=== PATIENT | female | born 1960 ===

== ENCOUNTER 2024-09-13 05:56 | Day surgery (SDC) | payer BC, SELFPAY ==
--- NOTE | 2024-09-12 11:30 | W.CON.GYNONC ---
Chief Complaint
-
pelvic mass
History of Present Illness
64�year�old��woman�referred�to�me�by�Dr�Ravy�Karen.�This�patient�had�not�had�a�gynecologic�evaluation�since�COVID pandemic.�She�went�in�for�routine�exam�because�starting�in�[place]�she�experienced�some�postmenopausal�bleeding.�Over�the�last
couple�of�years�she�had�noted�some�bloating�of�the�lower�abdomen�and�essentially�attributed�it�to�menopausal�weight�gain.�Pap smear�was�done.�An�ultrasound�of�pelvis�was�ordered�because�of�palpated�mass�during�exam.�And�she�was�referred�to�Dr.�Karen
She�had�a�CT�abdomen�and�pelvis�October�t�[place]�outpatient�imaging[place],�liver�bile�duct�gallbladder
pancreas�spleen�adrenal�glands�kidneys�ureters�and�bladder�are�normal.�There�is�a�large�multi�locular�cystic�mass�measuring�20�x
19�x�9�cm�arising�from�left�adnexa.�Endometrium�is�thickened�with�heterogeneous�enhancement�and�nodularity�measuring�1�cm. Bowel�and�peritoneal�cavity�are�normal�and�there�is�no�retroperitoneal�lymphadenopathy.
Pap�smear�was�negative�for�intraepithelial�lesion.�Dated�Cristel Because�of�thickened�endometrium�and�D&C�and�hysteroscopy�was�performed,�this�shows�mucus�admixed�with�benign�endocervix
lower�uterine�segment�and�atrophic�ectocervical�tissue�and�endocervical�curetting.�Endometrial�curetting�shows�inactive endometrium.�A�polyp�was�shaved�which�shows�polypoid�inactive�endometrium�with�cystically�dilated�glands�and�stromal�changes
compatible�with�endometrial�polyp.�Most�likely�this�was�the�explanation�for�the�thickened�endometrium. hCG�less�than�1,�CA125�is�21,�AFP�is�4.2,�estradiol�is�67.2,�inhibin�B�is�14,�inhibin�a�is�5.3
Allergies No�Known�Drug�Allergies
Medications
biotin�10,000�mcg�capsule 09/11/2024 0 1�p.o.�q.�day
calcium�166.6�mg�vit�D2�4.15�mcg magnesium�83.3 mg�
vit�C�K2�min�tablet 09/11/2024 0 2�in�the�AM�2 in�the�PM
Fish�Oil�900�mg�360�mg�455�mg�1,000�mg�capsule 09/11/2024 0 1�p.o.�q.�day
magnesium�250�mg�tablet 09/11/2024 500mg�2�in the�PM
multivitamin�oral 09/11/2024 0 1�p.o.�q.�day
rosuvastatin�20�mg�tablet 09/11/2024 0 1�p.o.�q.�day
Vitamin�D3�125�mcg�(5,000�unit)�tablet 09/11/2024 0 1�p.o.�q.�day
Zyrtec�10�mg�tablet 09/11/2024 0 1�p.o.�q.�day
Past�Medical�History Hyperlipidemia. Surgical�History Hysteroscopy�&�D&"Social�History Patient�denies�ever�using�tobacco. 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 Patient�has�not�had�any�occupational�exposure. Marital�Status:�Patient�is�
Father�with�prostate�ca�and�Pancreatic�ca Gynecological�History Age�at�Menarche�12�years.�Patient�reports�2�pregnancies.�Her�age�at�first�full�term��was�25�years. No�history�of�hormone�replacement�therapy.
Family�Medical�History Father��Pancreatic�cancer.�Prostate�cancer. Mother��Heart�disease.� Brother��Heart�disease.�Hypertension.�
Medical History
Allergies
Allergies reflect when allergies were last updated in [facility].
No Known Allergies Allergy (Verified 09/11/24 11:17)
Review of Systems
-
History Source: Patient
A 12 point Review of Systems was completed except as noted: Yes
Physical Exam
Physical Exam
Pelvic�Examination: External�normal�labia,�urethra,�anus.� Vagina:�Normal�mucosa.� Cervix:�normal�appearance,�no�discharge.� Uterus:�normal�size.�Deviated�to�the�posterior�cul�de�sac
Adnexa:�There�is�a�cystic�fullness�in�the�lower�abdomen�up�to�the�level�of�umbilicus,�I�am�unable�to�appreciate�right�versus�left ovary. RVE:�no�masses�or�nodularity General:�Well�developed,�well�nourished�patient.�In�no�acute�distress.
Neck:�No�thyromegaly.�No�cervical�lymphadenopathy. Lungs:�Clear�to�auscultation.�Good�air�movement�bilaterally. Cardiac:�Regular�rate.�Regular�rhythm.�No�murmurs�appreciated. Right�Breast:�No�changes.�No�masses�or�dimpling.�No�nipple�discharge.
Left�Breast:�No�changes.�No�masses�or�dimpling.�No�nipple�discharge. Abdomen:�Abdomen�is�soft.�Non�tender�to�palpation.�Non�distended.Mass�palpated:�lower�abdomen. Extremities:�No�edema. Hematologic/Lymphatic:�No�palpable�lymphadenopathy.
Musculoskeletal:�Normal�range�of�motion.�Strength�and�Tone�are�normal. Skin:Non�jaundiced.�No�petechia.�No�purpura. Neurologic:�Speech�is�fluent.�Normal�gait�and�station.�Cranial�nerves�intact.
Impression / Plan
-
This�patient�has�left�lower�quadrant�mass�which�is�approximately�19�cm,�my�clinical�impression�is�that�this�is�probably�a�mucinous
neoplasm�benign�versus�low�malignant�potential�less�likely�invasive�cancer.�Recommendation�for�treatment�is�surgery.�Surgery
should�include�removal�of�uterus�cervix�bilateral�tubes�and�ovaries,�at�the�time�of�surgery�frozen�section�will�be�obtained.�If�the�mass
is�malignant�additional�investigation�needs�to�be�performed�to�include�but�not�limited�to�pelvic�and�aortic�lymph�node�dissection,
peritoneal�biopsies�omentectomy�possibly�appendectomy.�The�surgery�can�be�done�open�versus�robotic.�I�would�recommend�that
we�start�as�a�robotic�procedure�and�attempt�completing�the�procedure�if�at�all�possible.�The�cyst�can�be�placed�within�a�bag�for retrieval�either�through�a�mini�laparotomy�or�through�the�vagina.�
Risks�of�surgery�including�infection�bleeding�injury�to�adjacent�organs,�DVT�pulmonary�embolism�and�cardiovascular�complications were�discussed�and�reviewed.�
The�patient�was�given�options�about�dates�of�procedure�and�we�are�agreeable�to�proceed�with�surgery�on�November�29�2024. Surgery�[facility]. Informed�consent�was�signed.�
[2024-09-13] VITALS (11 sets, daily range): BP systolic 105–129; BP diastolic 38–65; BMI 24.4
[2024-09-13] MEDS: TYLENOL 1000 MG PO (08:45)
[2024-09-13] MEDS: NEURONTIN 300 MG PO (08:45)
[2024-09-13] MEDS: CELEBREX 200 MG PO (08:45)
[2024-09-13] MEDS: HEPARIN 5000 UNITS SC (09:43)
--- NOTE | 2024-09-13 12:37 | OR.RPT ---
Operative Report
Operative Report
The assistance of Hector Nails and Shannan Alicia was required due to the complexity of the procedure. During the procedure Both assisted with retraction, resection, and closure of the wound.
Date of procedure: September 13, 2024
Preoperative diagnosis: Pelvic mass, 19 cm
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
Procedure:
Robotic assisted cytoreductive surgery including total laparoscopic hysterectomy, bilateral salpingo-oophorectomy, omentectomy 78629
Robotic assisted laparoscopic appendectomy 50900
TAP block
Surgeon: Kalyan Mcintosh MD
Assist: Hector Nails PA-C, Shannan Alicia PA-C
Anesthesia: General Endotracheal intubation
Estimated blood loss: 50 cc
Complications: None
Specimens: Pelvic washing, left tube and ovary, uterus cervix with right tube and ovary, appendix, omentum
Procedure in detail: This patient was taken to the operating room and placed in supine position, general anesthesia was administered, she was intubated without any difficulty her arms were wrapped in foam for protection of all joints after IV
placement, she was placed in lithotomy position using yellowfin stirrups, she was prepped on the abdomen perineum and vagina and draped. Golden catheter was placed under sterile conditions to drain the bladder. Timeout procedure was carried out,
anterior lip of the cervix was grasped with single-tooth tenaculum. Cervical canal was dilated uterine manipulator records officer type with 3.5 cm ANH ring was placed in the cervical canal around the cervix, vaginal occluder was insufflated. Attention
was turned abdominally, Veress needle was placed into the peritoneal cavity just under the left subcostal margin, pneumoperitoneum was created with CO2 gas up to pressure of 15 mmHg. Next 8 mm XI trocar was introduced just at approximately 25 cm
cephalad to symphysis pubis into the peritoneal cavity, under direct visualization additional 8 mm excised robotic ports were placed in right upper quadrant left upper quadrant and left lateral abdomen and a 12 mm air seal port was placed in the
right lower quadrant laterally. Air seal system was set up. Examination of upper abdomen reveals right and left diaphragms, right and left lobes of the liver stomach omentum falciform ligament to be all within normal limits.
Tap block was performed using a combination of 30 mL 0.5% ropivacaine admixed with 30 mL normal saline and Decadron injected 2 fingerbreadths below the costal margins on right and left sides at the level of interface of muscle and peritoneum under
direct visualization and also some was injected along the mid lateral abdomen.
There is a large cystic mass arising from left ovary with smooth appearing capsule, there was no ascites. Right tube and ovary is atrophic and appropriate for age uterus and cervix were unremarkable. There was no visible implants involving pelvic
organs. Patient was placed in 28 degree Trendelenburg position and robotic system was docked. We went ahead and used a needle aspirator to carefully aspirated contents of the cyst from superior aspect of the mass, approximately 1200 cc was drained
subsequently this opening was made larger and we were able to suction the remainder of the fluid within the cyst. The fluid had a mucinous texture, inside the mass there was no visible excrescences. Left round ligament was sealed and divided and
the left pelvic sidewall was opened the course of the ureter was identified, a window was created between left IP and left ureter and the left IP ligament was sealed 3 times and divided. The left tube and ovary was detached from the cornea of the
uterus and the specimen was placed in a 10/15 mm bag. I turned my attention to right round ligament which was sealed and divided, anterior and posterior leaves of the broad ligament were dissected open, IP ligament was isolated and sealed 3 times
and divided the right tube and ovary was left attached to the uterus. Bladder flap was sharply developed and advanced below the cervicovaginal junction. Uterine arteries were skeletonized on both sides. Uterine arteries followed by cardinal
ligaments followed by uterosacral ligaments were serially sealed and divided circumferential incision was made on the ANH ring around the cervix until the specimen was detached. Uterus cervix and right tube and ovary was initially removed through
the vagina, next left tube and ovary was removed within the bag through the vagina and sent to pathology for frozen section. I inspected the remainder of the abdomen. Frozen section returned back as seromucinous cystadenoma however this was just
based on 2 sections and a larger mass and given the possibility that it could be upgraded to a borderline tumor or invasive cancer I went ahead and sampled omentum and remove the appendix. Omentectomy was performed from the infracolic region,
omentum was elevated, I used the vessel sealer to seal across a series of omental vessels and the omentum was freed up from hepatic to splenic flexure and submitted to pathology, removed through the vagina. Mesoappendix was examined, the
appendiceal tip appeared to be thick and abnormal. Mesoappendix was sealed and divided the base of the appendix and the cecum was freed up. Endo ROMAIN stapler was fired on the cecum at the base of the appendix using a 45 mm vascular stapler stapler
was fired and the appendix was removed through the vagina and submitted to pathology. 3 rows of rei were visible on the cecum. Extra rei were suctioned and removed. I went ahead and irrigated copiously and used the vessel sealer to also
religate IP ligaments. Next vaginal cuff was closed at both apices using 0 Vicryl suture ligature in a [id number] fashion. V-Loc suture was used to close the cuff starting from right to the left and back to the right sides in 2 layers. We
irrigated pelvis and ensure that all pedicles were hemostatic we used the Conner Garrett system to close the fascia at the 12 mm air seal port. All ports were removed and the robotic system was docked and the skin was closed with 4-0 Monocryl in a
subcuticular fashion. Counts of laps instruments and needle was correct x 2 Golden catheter was removed patient returned back to recovery room stable awake and extubated condition. The vagina was examined and irrigated and there was no lacerations
except the superficial periurethral laceration.
Disposition: To PACU, stable awake extubated
[2024-09-13] MEDS: DILAUDID 0.25 MG IV ×2 (13:04→13:21)
[2024-09-13] MEDS: TYLENOL 650 MG PO (14:47)
[2024-09-13] MEDS: LASIX 10 MG IV (17:15)
== END 2024-09-13 18:02 | disposition home or self-care (01) ==
LOC: SDS 05:56
PROVIDERS: ATTENDING PHYSICIAN Obstetrics & Gynecology Gynecologic Oncology
DX: D27.1 Benign neoplasm of left ovary (principal); N80.03 Adenomyosis of the uterus; D25.9 Leiomyoma of uterus, unspecified; R19.04 Left lower quadrant abdominal swelling, mass and lump
CPT/HCPCS: 58571; 49322; 88304; 88305; 88307; 88332; 88112; 88331